=== PATIENT | male | born 1970 | race African-American/Black ===

== ENCOUNTER → 2019-03-06 | Outpatient (CLI) | payer OTHER ==
[2014-03-22 15:07] VITALS: BP 134/93
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
== END | disposition home or self-care (01) ==
LOC: RAD 09:52
PROVIDERS: ATTEND Surgery
DX: J98.6 Disorders of diaphragm (principal); Z87.828 Personal history of other (healed) physical injury and trauma
CPT/HCPCS: 71046

== ENCOUNTER → 2019-04-10 | Outpatient (CLI) | payer OTHER ==
[2014-03-22 15:07] VITALS: BP 134/93
== END | disposition home or self-care (01) ==
LOC: PF 07:47
PROVIDERS: ATTEND Surgery
DX: J98.4 Other disorders of lung (principal); Z87.891 Personal history of nicotine dependence
CPT/HCPCS: 94010; 94729